=== PATIENT | female | born 1980 ===

== ENCOUNTER 2017-10-05 20:04 | Emergency (ER) | payer BC ==
[2017-10-05 20:19] VITALS: BP 135/89; PULSE 70; RESP 18; TEMP 98.6; O2SAT 99
--- NOTE | 2017-10-05 20:36 | ED PDOC ---
HPI: Skin/Bite Injury Time Seen by Provider: 10/05/17 20:33 Chief Complaint (Nursing): Abnormal Skin Integrity History Per: Patient History/Exam Limitations: no limitations Onset/Duration Of Symptoms: Days Current Symptoms Are (Timing): Still Present Location Of Injury: Right: Thigh, Left: Thigh, Anterior: Abdomen (rash), Chest ( rash), Neck, Thigh Additional Complaint(s): 37 y/o female, who presents to the ED complaining of a rash on chest wall, abdomen, and thighs since one week. Patient reports one week ago she began taking vitamins, but she developed a rash associated with throat discomfort. Patient currently not but is attempting to become . Patient notes taking Benadryl with temporary relief. Patient denies shortness of breath, fever, chest pain, vomiting, or other complaints. Past Medical History Reviewed: Historical Data, Nursing Documentation, Vital Signs Vital Signs: Last Vital Signs Temp 98.6 F 10/05/17 20:11 Pulse 70 10/05/17 20:11 Resp 18 10/05/17 20:11 BP 135/89 10/05/17 20:11 Pulse Ox 99 10/05/17 22:12 - Surgical History Surgical History: No Surg Hx - Family History Family History: States: No Known Family Hx - Home Medications Home Medications: Ambulatory Orders Medication Instructions Recorded DiphenhydrAMINE [Benadryl] 50 mg PO Q6 PRN #24 cap 10/05/17 predniSONE [Prednisone] 3 tab PO DAILY #12 tab 10/05/17 - Allergies Allergies/Adverse Reactions: Allergies Allergy/AdvReac Type Severity Reaction Status Date / Time No Known Allergies Allergy Verified 10/05/17 20:24 Review of Systems ROS Statement: Except As Marked, All Systems Reviewed And Found Negative Constitutional: Negative for: Fever ENT: Positive for: Throat Pain (throat discomfort) Respiratory: Negative for: Shortness of Breath Skin: Positive for: Rash (chest wall, abdomen, and upper thighs ) Physical Exam - Reviewed Nursing Documentation Reviewed: Yes Vital Signs Reviewed: Yes - Physical Exam Appears: Positive for: Well, Non-toxic, No Acute Distress Head Exam: Positive for: ATRAUMATIC, NORMAL INSPECTION, NORMOCEPHALIC Skin: Positive for: Warm, Rash (papular rash on chest wall, abdomen, neck, and proximal thighs) Eye Exam: Positive for: EOMI, Normal appearance, PERRL ENT: Positive for: Normal ENT Inspection. Negative for: Pharyngeal Erythema, Tonsillar Exudate, Tonsillar Swelling Neck: Positive for: Normal, Painless ROM, Supple Respiratory: Positive for: Normal Breath Sounds. 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 I have reviewed the chart and agree that the record accurately reflects my personal performance of the history, physical exam, medical decision making, and the department course for this patient. I have also personally directed, reviewed, and agree with the discharge instructions and disposition. Disposition - Clinical Impression Clinical Impression: Allergic reaction - Patient ED Disposition Is Patient to be Admitted: No - Disposition Disposition: Routine/Home Disposition Time: 21:23 Condition: IMPROVED Prescriptions: DiphenhydrAMINE [Benadryl] 50 mg PO Q6 PRN #24 cap PRN Reason: Itching / Pruritus predniSONE [Prednisone] 3 tab PO DAILY #12 tab Instructions: Skin Rash Forms: [facility] (Turkmen) Print Language: SLOVAK
== END 2017-10-05 21:24 | disposition home or self-care (01) ==
LOC: H.ER 20:04
DX: L98.9 Disorder of the skin and subcutaneous tissue, unspecified (principal); R21 Rash and other nonspecific skin eruption
CPT/HCPCS: 96374; 99282; J2930